=== PATIENT | female | born 1940 | race Caucasian/White ===

== ENCOUNTER → 2017-04-04 | Outpatient (CLI) | payer MEDICARE, BC ==
--- NOTE | 2017-04-04 15:28 | FL ---
EXAMINATION: Cervical and Thoracic Esophagram EXAMINATION TYPE: FL barium swallow DATE OF EXAM: 04/04/2017 11:06 AM CLINICAL INDICATION: 76-year-old female with cough, shortness swallowing, dysphasia, weight changes. COMPARISON: 11/05/2011. Total Fluoroscopy Time: 2.7 minutes FINDINGS: The swallowing mechanism is normal. 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 The cervical and thoracic portions have a normal course and caliber caliber. There are mild tertiary peristaltic contractions. The mucosa is normal and no persistent filling defect is encountered. No hiatal hernia is present. Valsalva and positional maneuvers could not elicit any gastroesophageal reflux. 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
== END | disposition home or self-care (01) ==
LOC: RADFLWHC 09:44
PROVIDERS: ATTEND Otolaryngology
DX: K22.5 Diverticulum of esophagus, acquired (principal); J39.2 Other diseases of pharynx; R05 Cough
CPT/HCPCS: 74220

== ENCOUNTER → 2017-04-04 | Outpatient (CLI) | payer MEDICARE, BC | END | disposition home or self-care (01) | LOC: PTMAIN 09:04 | PROVIDERS: ATTEND Otolaryngology | DX: K21.9 Gastro-esophageal reflux disease without esophagitis (principal); R13.10 Dysphagia, unspecified; R05 Cough | CPT/HCPCS: 31579; 74220 ==

== ENCOUNTER → 2017-11-09 | Outpatient (CLI) | payer MEDICARE, BC ==
--- NOTE | 2017-11-09 13:57 | USB ---
Reason for exam: additional evaluation requested from abnormal screening. History: Patient is postmenopausal. Took hormonal contraceptives for 4 years. Took estrogen for 2 months beginning at age 50. Physical Findings: Nurse did not find any significant physical abnormalities on exam. US Breast Workup Limited RT Right breast ultrasound demonstrates oval, elongated ducts at 3 o'clock and a 0.4 x 0.3 x 0.2cm lesion too small to characterize at 8 o'clock, questionable lymph node. These results were verbally communicated with the patient and result sheet given to the patient on 11/09/17. ASSESSMENT: Probably benign, BI-RAD 3 RECOMMENDATION: Follow-up diagnostic mammogram of the right breast in 6 months.
== END | disposition home or self-care (01) ==
LOC: RADUSWWP 12:35
PROVIDERS: ATTEND Family Medicine
DX: R92.8 Other abnormal and inconclusive findings on diagnostic imaging of breast (principal)

== ENCOUNTER → 2018-06-02 | Outpatient (CLI) | payer MEDICARE, BC ==
--- NOTE | 2018-06-05 08:54 | MM ---
Reason for exam: follow-up at short interval from prior study. Last mammogram was performed 7 months ago. History: Patient is postmenopausal. Took hormonal contraceptives for 4 years. Took estrogen for 2 months beginning at age 50. Physical Findings: Nurse did not find any significant physical abnormalities on exam. MG 3D Diag Mammo W/Cad RT CC and MLO view(s) were taken of the right breast. Prior study comparison: October 26, 2017, bilateral MG 3d screening mammo w/cad. September 28, 2016, bilateral MG 3d screening mammo w/cad. There are scattered fibroglandular densities. There is a stable 3mm lower inner quadrant right breast mass also seen on prior ultrasound. This will be compared with ultrasound today. These results were verbally communicated with the patient and result sheet given to the patient on 06/02/18. ASSESSMENT: Incomplete: need additional imaging evaluation, BI-RAD 0 RECOMMENDATION: Ultrasound of the right breast. (lower outer quadrant and upper outer quadrant)
--- NOTE | 2018-06-05 08:57 | USB ---
Reason for exam: additional evaluation requested from abnormal screening. History: Patient is postmenopausal. Took hormonal contraceptives for 4 years. Took estrogen for 2 months beginning at age 50. US Breast Limited RT Technologist: Luz Marina Loo RT (R)(M) Right limited breast ultrasound including focal area of concern, retroareolar and axilla demonstrates a 4 x 4 x 3mm cystic cluster at 8 o'clock, similar in size to the prior. No new finding. These results were verbally communicated with the patient and result sheet given to the patient on 06/02/18. ASSESSMENT: Probably benign, BI-RAD 3 RECOMMENDATION: Follow-up diagnostic mammogram of both breasts in 6 months. Ultrasound of the right breast in 6 months.
== END | disposition home or self-care (01) ==
LOC: RADMAMWWP 13:35
PROVIDERS: ATTEND Family Medicine
DX: R92.8 Other abnormal and inconclusive findings on diagnostic imaging of breast (principal)
CPT/HCPCS: 77065; 76642; G0279; 77061

== ENCOUNTER → 2019-01-05 | Outpatient (CLI) | payer MEDICARE, BC ==
--- NOTE | 2019-01-05 14:24 | MM ---
Reason for exam: additional evaluation requested from prior study. Last mammogram was performed 7 months ago. History: Patient is postmenopausal. Took hormonal contraceptives for 4 years. Took estrogen for 2 months beginning at age 50. Physical Findings: Nurse did not find any significant physical abnormalities on exam. MG 3D Diag Mammo W/Cad TAVO Bilateral CC and MLO view(s) were taken. Prior study comparison: June 02, 2018, right breast MG 3d diag mammo w/cad RT. October 26, 2017, bilateral MG 3d screening mammo w/cad. The breast tissue is heterogeneously dense. This may lower the sensitivity of mammography. Stable focal asymmetry of the lower inner quadrant on the right and lateral asymmetry. These results were verbally communicated with the patient and result sheet given to the patient on 01/05/19. ASSESSMENT: Probably benign, BI-RAD 3 RECOMMENDATION: Follow-up diagnostic mammogram of both breasts in 1 year.
--- NOTE | 2019-01-05 14:26 | USB ---
Reason for exam: follow-up at short interval from prior study. History: Patient is postmenopausal. Took hormonal contraceptives for 4 years. Took estrogen for 2 months beginning at age 50. US Breast RT Right complete breast ultrasound includes all four quadrants, the retroareolar region and axilla. Finding demonstrates a 4 x 2 x 5mm oval, hypoechoic lesion at 8 o'clock, seen on previous, measured 4 x 3 x 2mm on 11/09/17. 1 year follow up, if stable can be considered benign. These results were verbally communicated with the patient and result sheet given to the patient on 01/05/19. ASSESSMENT: Probably benign, BI-RAD 3 RECOMMENDATION: Ultrasound of the right breast in 1 year.
== END | disposition home or self-care (01) ==
LOC: RADMAMWWP 13:06
PROVIDERS: ATTEND Family Medicine
DX: R92.8 Other abnormal and inconclusive findings on diagnostic imaging of breast (principal)
CPT/HCPCS: 77066; 76641; G0279; 77062

== ENCOUNTER 2019-11-12 10:41 | Emergency (ER) | payer MEDICARE, BC ==
[2019-11-12 10:53] VITALS: BP 152/64; PULSE 95; RESP 18; TEMP 98.1
[2019-11-12] MEDS ORDERED: DIPH,PERTUS(ACELL)TETVAC-LF 0.5 ML VIAL IM ONE (10:59)
[2019-11-12] MEDS ORDERED: AMOXIC-POT CLAV 875-125MG 1 EACH TAB PO STA (10:59)
[2019-11-12] MEDS ORDERED: AMOXIC-POT CLAV 875MG STARTER 2 EACH TABLET PO STA (10:59)
--- NOTE | 2019-11-12 11:16 | ED ---
General Adult HPI - General Chief complaint: Skin/Abscess/Foreign Body Stated complaint: cat bite Time Seen by Provider: 11/12/19 10:54 Source: patient, RN notes reviewed, old records reviewed Mode of arrival: ambulatory Limitations: no limitations - History of Present Illness Initial comments: 79-year-old female patient with no pertinent past history presents to ED for chief complaint of cat bite to right forearm. Patient reports that the cat when she was bitten from was her own. Reports that she had the cath for approximately 3 years. States that the cat was her own and was in the process of dying of currently natural causes. Patient was at the cat did not like to be touched and she simply groan the cat bit her on the dorsal aspect of forearm. This bite occurred yesterday. Patient denies any other complaints. Systemic: Pt denies fatigue, fever/chills, rash. Pt denies weakness, night sweats, weight loss. Neuro: Pt denies headache, visual disturbances, syncope or pre-syncope. HEENT: Pt denies ocular discharge or irritation, otalgia, rhinorrhea, pharyngitis or notable lymphadenopathy. Cardiopulmonary: Pt denies chest pain, SOB, heart palpitations, dyspnea on exertion. Abdominal/GI: Pt denies abdominal pain, n/v/d. : Pt denies dysuria, burning w/ urination, frequency/urgency. Denies new onset urinary or bowel incontinence. MSK: Pt denies myalgia, loss of strength or function in extremities. Neuro: Pt denies new onset weakness, paresthesias. - Related Data Previous Rx's Medication Instructions Recorded Amoxicillin/Potassium Clav 1 each PO Q12HR 10 Days #20 tab 11/12/19 [Augmentin 875-125 Tablet] Allergies Allergy/AdvReac Type Severity Reaction Status Date / Time atorvastatin [From Lipitor] Allergy Nausea & Verified 11/12/19 10:53 Vomiting Review of Systems ROS Statement: Those systems with pertinent positive or pertinent negative responses have been documented in the HPI. ROS Other: All systems not noted in ROS Statement are negative. Past Medical History Past Medical History: Diabetes Mellitus, Hypertension History of Any Multi-Drug Resistant Organisms: None Reported Past Surgical History: Hernia Repair, Hysterectomy, Tubal Ligation Past Psychological History: Anxiety, Depression Smoking Status: Former smoker Past Alcohol Use History: None Reported Past Drug Use History: None Reported General Exam - General Exam Comments Initial Comments: Constitutional: NAD, AOX3, Pt has pleasant affect. HEENT: NC/AT, trachea midline, neck supple, no lymphadenopathy. Posterior pharynx non erythematous, without exudates. External ears appear normal, without discharge. Mucous membranes moist. Eyes PERRLA, EOM intact. There is no scleral icterus. No pallor noted. Cardiopulmonary: RRR, no murmurs, rubs or gallops, no JVD noted. Lungs CTAB in anterior and posterior palomo. No peripheral edema. Abdominal exam: Abdomen soft and non-distended. Abdomen non-tender to palpation in all 4 quadrants. Bowel sounds active in LLQ. No hepatosplenomegaly. No ecchymosis Neuro: CN II-XII grossly intact. No nuchal rigidity. No raccon eyes, no fritz sign, no hemotympanum. No cervical spinal tenderness. MSK: Puncture wound with mild amount of surrounding erythema on dorsal aspect of right forearm. No streaking. Mildly warm to touch. No purulent drainage or fluctuance. No posterior calf tenderness bilaterally, homans sign negative bilaterally. Posterior tibialis and radial pulse +2 bilaterally. Sensation intact in upper and lower extremities. Full active ROM in upper and lower extremities, 5/5 stregnth. Limitations: no limitations Course Vital Signs 11/12/19 10:50 Temperature 98.1 F Pulse Rate 95 Respiratory 18 Rate Blood Pressure 152/64 O2 Sat by Pulse 98 Oximetry Medical Decision Making - Medical Decision Making 79-year-old female patient presented to ED for chief complaint of cat bite dorsal aspect of right forearm. Patient will signs are stable, afebrile. Physical exam displayed a puncture wound with mild amount of surrounding erythema. Patient declined rabies vaccine. Patient initiated on Augmentin tetanus updated. Discharged with a strict return precautions will follow-up with primary care provider tomorrow. Patient will return to ER physician worsens. Case discussed with Dr. Metzger. Disposition Clinical Impression: Cat bite Disposition: HOME SELF-CARE Condition: Stable Instructions (If sedation given, give patient instructions): Animal Bite (ED) Additional Instructions: Take antibiotics as directed. Follow up with primary care provider tomorrow. Return to ER if condition worsens. Prescriptions: Amoxicillin/Potassium Clav [Augmentin 875-125 Tablet] 1 each PO Q12HR 10 Days #20 tab Is patient prescribed a controlled substance at d/c from ED?: No Referrals: Sonia Aguilar MD [Primary Care Provider] - 1-2 days
--- NOTE | 2019-11-12 11:27 | ED ---
Medical Decision Making - Medical Decision Making While cleaning wound I was able to express a very small amount of purulent drainage from the area of cat bite. A culture was obtained. Disposition Clinical Impression: Cat bite Disposition: HOME SELF-CARE Condition: Stable Instructions (If sedation given, give patient instructions): Animal Bite (ED) Additional Instructions: Take antibiotics as directed. Follow up with primary care provider tomorrow. Return to ER if condition worsens. Prescriptions: Amoxicillin/Potassium Clav [Augmentin 875-125 Tablet] 1 each PO Q12HR 10 Days #20 tab Is patient prescribed a controlled substance at d/c from ED?: No Referrals: Sonia Aguilar MD [Primary Care Provider] - 1-2 days
== END 2019-11-12 11:34 | disposition home or self-care (01) ==
LOC: EC 10:41
DX: S51.851A Open bite of right forearm, initial encounter (principal); Z23 Encounter for immunization; Z53.20 Procedure and treatment not carried out because of patient's decision for unspecified reasons; Z87.891 Personal history of nicotine dependence; Z88.8 Allergy status to other drugs, medicaments and biological substances; W55.01XA Bitten by cat, initial encounter
CPT/HCPCS: 87070; 87205; 90471; 90715; 99284